=== PATIENT | female | born 1965 | race Caucasian/White ===

== ENCOUNTER 2017-06-01 16:28 | Emergency (ER) | payer MEDICAID ==
--- NOTE | 2017-06-01 16:43 | EDPHY ---
H & P Time Seen by Provider: 06/01/17 16:43 HPI/ROS: CHIEF COMPLAINT: Diarrhea with abdominal cramping HISTORY OF PRESENT ILLNESS: This is a 51 year female whose had a problem for about 9-10 days. From the beginning she is having multiple episodes of diarrheal stools on a daily basis sometimes 5-6. There has been no blood but it has been green in color, at times. She has not tried any medications such as Imodium. The discomfort itself is associated with diarrhea. She will have welling up of lower abdominal distress followed by relief with the diarrhea. At no times it is it painful for her to stand or walk or ride in the car. No else is similar symptoms, no travel. There was some 3 episodes of emesis 4-5 days ago but has been able to hydrate well. She is not taking excessive amounts of caffeine, juices. However she does take a fair amount of dairy though that has never been a problem for her in the past She was on antibiotics approximately 7 days ago for dental problems taking clindamycin. She was remote history of a dysentery in the setting of the [employer] trips to the [facility] in [place]. Travel: None Others: None Antibiotics: Yes, 7 weeks ago, she believes clindamycin Bad Food: None Bad Water: None Recent Surgery: None REVIEW OF SYSTEMS: Constitutional: She did not check her temperature readings but she did feel chilled at home and suspects she had a fever Eyes: No discharge ENT: No sore throat. Cardiovascular: No chest pain, no palpitations. Respiratory: No cough, shortness of breath, or wheezing. Gastrointestinal: See above Genitourinary: No hematuria or frequency. Musculoskeletal: No back pain. Skin: No rashes. Neurological: No headache. 10 point ROS otherwise negative Source: Patient Exam Limitations: No limitations - Personal History Tetanus Vaccine Date: unsure - Medical/Surgical History Hx Asthma: No Hx Chronic Respiratory Disease: No Hx Diabetes: No Hx Cardiac Disease: No Hx Renal Disease: No Hx Cirrhosis: No Hx Alcoholism: No Hx HIV/AIDS: No Hx Splenectomy or Spleen Trauma: No Other PMH: MEd hx-Insomnia. Surg-renate - Family History Significant Family History: No pertinent family hx - Social History Smoking Status: Light smoker Alcohol Use: None Drug Use: None - Physical Exam Exam: General Appearance: Alert, no distress. Afebrile, though feels a little warm to the touch. Normal phonation. No respiratory distress. Eyes: Pupils equal and round no pallor or injection. No icterus ENT, Mouth: Mucous membranes moist Pharynx without erythema or exudate. TM Clear. Neck: No adenopathy. Supple. No JVD. Trachea in midline. Respiratory: There are no retractions, lungs are clear to auscultation. Chest wall: Nontender to palpation. No crepitus. Cardiovascular: Regular rate and rhythm, without murmur. Abdomen: Soft, bowel sounds normal. There is tenderness diffusely mostly left lower quadrant left buttock quadrant but to a small extent the right lower quadrant. No rebound or guarding Neurological: Ox3. No motor weakness. Sensation intact. Gait nl. Skin: Warm and dry, no rashes. Musculoskeletal: No joint swelling. Extremities: No edema. Homans sign negative. No cords. Psychiatric: Normal affect. Patient is oriented X 3. There is no agitation Constitutional: Initial Vital Signs Temperature (C) 37.0 C 06/01/17 16:30 Heart Rate 90 06/01/17 16:30 Respiratory Rate 16 06/01/17 16:30 Blood Pressure 140/94 H 06/01/17 16:30 O2 Sat (%) 93 06/01/17 16:30 O2 Delivery Mode Room Air Allergies/Adverse Reactions: codeine Allergy (Verified 06/01/17 16:43) Home Medications: Medication Instructions Recorded Clonazepam PRN 05/19/16 Dicyclomine [Bentyl 10 MG (*)] 10 mg PO Q8H PRN #10 cap 06/01/17 Seroquel 06/01/17 traMADol 06/01/17 Medical Decision Making ED Course/Re-evaluation: We discussed diagnostic options. I offered her a CT scan as she does have left lower quadrant tenderness although that most likely represents colitis rather than diverticulitis. She would like to opt out from that and would consider coming back if there is more pain specific to left lower quadrant or pain with ambulation or in general feeling worse. In the interim she will submit a stool specimen which we have obtained here. Antibiotic therapy would directed based upon the actual results rather than preliminary. Initially she is to avoid any Imodium therapy. She will have Bentyl for the cramps that she is experiencing We discussed other diagnostic options such as inflammatory bowel disease Differential Diagnosis: Differential diagnosis includes, but is not limited to: Gastroenteritis, dehydration, diverticulitis, renal colic, kidney stones, ureterolithiasis, cholecystitis, appendicitis, gastritis, mesenteric adenitis, food poisoning, bacterial dysentery, inflammatory bowel disease, spastic colon. Departure - Departure Disposition: Home, Routine, Self-Care Clinical Impression: Acute diarrhea Condition: Good Instructions: Acute Diarrhea (ED) Additional Instructions: Try to use a regular diet as much as possible Avoid particular things such as dairy, coffee, too much juices No Imodium for now until the E coli is read as negative Bentyl for the cramps - -sedation risk, thus no drinking, driving, working around machinery Call for stool results in 3 days: [phone] Referrals: Tammi AMBRIZ [Primary Care Provider] - 3-4 days, if not improved Prescriptions: Dicyclomine [Bentyl 10 MG (*)] 10 mg PO Q8H PRN #10 cap PRN Reason: Abdominal cramps
[2017-06-01 16:51] VITALS: BP 140/94; PULSE 90; RESP 16; TEMP 98.6; O2SAT 93
== END 2017-06-01 17:28 | disposition home or self-care (01) ==
LOC: CED 16:28
DX: R19.7 Diarrhea, unspecified (principal); F17.200 Nicotine dependence, unspecified, uncomplicated

== ENCOUNTER 2017-06-04 16:57 | Emergency (ER) | payer MEDICAID ==
[2017-06-04 17:19] VITALS: BP 131/92; PULSE 84; RESP 16; TEMP 99; O2SAT 94
--- NOTE | 2017-06-04 17:24 | EDPHY ---
H & P Time Seen by Provider: 06/04/17 17:05 HPI/ROS: HPI Bilateral shoulder pain. 51-year-old female by private vehicle. This patient was seen in the emergency department on June 01 with abdominal cramping and diarrhea. A stool study was performed. This detected Clostridium difficile. I am not sure the clinical significance of this given the natural carriage asymptomatic state. Stool studies were otherwise negative. She was placed on vancomycin for this. She reports that since Saturday she has developed bilateral shoulder pain. She describes this as deep and aching and more pronounced with movement of the shoulders. She has not had a fever. She denies any urinary complaints. No ocular or eyelid inflammation or changes in vision. There is no history of trauma or fall. She has not been working out recently. She describes it is similar to the pain she had with a rotator cuff injury. ROS: Constitutional: No fever, no chills. No weakness. Eyes: No discharge. No changes in vision. ENT: No sore throat. No nasal congestion or rhinorrhea. Respiratory: No cough. No shortness of breath. Cardiac: No chest pain, no palpitations. Gastrointestinal: No abdominal pain, no vomiting, no diarrhea. Genitourinary: No hematuria. No dysuria or increased frequency with urination. Musculoskeletal: No back pain. No neck pain. As above. Skin: No rashes. Neurological: No headache. No focal weakness or altered sensation. Past medical history: As above. Also includes cholecystectomy and insomnia. [facility] care is through [facility]. Social history: Light smoker. No alcohol. Here by herself. Physical Exam: General Appearance: Alert, no distress. This patient is responding to questions appropriately and in full sentences. This patient appears well- hydrated and well-nourished. Eyes: Pupils equal and round no pallor or injection. No lid edema, erythema or injection. Bilateral shoulder exam: No erythema, warmth, edema associated with the shoulder anatomy. She has discomfort with passive and active range of motion. The shoulders are anatomically symmetric and without evidence of subluxation/ dislocation. There is no significant pain on palpation of the bilateral AC joints. The upper extremities are neurovascularly intact. Respiratory: There are no retractions, lungs are clear to auscultation with good air movement bilaterally. Cardiovascular: Regular rate and rhythm. No murmur. Gastrointestinal: Abdomen is soft and nontender, no masses, bowel sounds normal. No focal tenderness at McBurney's point. No Crane sign. Neurological: Motor sensory function is grossly intact. Cranial nerves are normal. Gait is normal. Skin: Warm and dry, no rashes. Musculoskeletal: Neck is supple and nontender. No lymphadenopathy. Extremities are symmetrical. All joints range without pain or impingement except noted. Psychiatric: No agitation. No depression. Database: EKG: Imaging: Procedures: Emergency department course: Vital signs reviewed and are unremarkable. This patient's presentation is consistent with reactive arthritis. Plan will be to treat her with ibuprofen 600 mg every 6 hr with meals for the next 3-4 days and then have her follow up with her primary care physician for re-evaluation at that time. If she is not improving intra-articular glucocorticoids versus systemic glucocorticoids should be considered as well as follow up with a certified retinal angiographer. This plan was discussed with her. She feels comfortable going home. All of her questions were answered. Return to emergency department precautions reviewed. She was discharged in good condition. This patient presents Differential Diagnosis: The differential diagnosis on this patient includes but is not limited to reactive arthritis. Shoulder subluxation, dislocation, acute coronary syndrome , aortic dissection unlikely. This represents a partial list of diagnoses considered. These considerations are based on history, physical exam, past history, reassessment and diagnostic testing. Smoking Status: Current some day smoker Constitutional: Initial Vital Signs Temperature (C) 37.2 C 06/04/17 17:07 Heart Rate 84 06/04/17 17:07 Respiratory Rate 16 06/04/17 17:07 Blood Pressure 131/92 H 06/04/17 17:07 O2 Sat (%) 94 06/04/17 17:07 O2 Delivery Mode Room Air Allergies/Adverse Reactions: codeine Allergy (Verified 06/04/17 17:11) Home Medications: Medication Instructions Recorded Clonazepam PRN 05/19/16 Dicyclomine [Bentyl 10 MG (*)] 10 mg PO Q8H PRN #10 cap 06/01/17 Seroquel 06/01/17 traMADol 06/01/17 Clonidine 06/04/17 Vancomycin 06/04/17 Departure - Departure Disposition: Home, Routine, Self-Care Clinical Impression: Reactive arthritis of right shoulder, Reactive arthritis of left shoulder Condition: Good Instructions: Autoimmune Disease (ED), Arthritis (ED) Additional Instructions: Read and follow provided instructions. Follow-up with your primary care physician in 3-4 days for re-evaluation as discussed. Ibuprofen dosin mg every 6 hr with meals for the next 4 days. If your symptoms are not resolving with ibuprofen treatment, steroids should be considered and referral to a certified retinal angiographer should be considered. Discussed this with your primary care physician as needed. Return to the emergency department for worsening symptoms, fever, pain or other serious concerns. Referrals: NONE *PRIMARY CARE P,. [Primary Care Provider] - As per Instructions
[2017-06-04] MEDS ORDERED: IBUPROFEN 200 MG TAB PO ONE (17:40)
== END 2017-06-04 18:02 | disposition home or self-care (01) ==
LOC: CED 16:57
DX: M02.311 Reiter's disease, right shoulder (principal); M02.312 Reiter's disease, left shoulder; F17.200 Nicotine dependence, unspecified, uncomplicated

== ENCOUNTER 2017-07-30 11:40 | Emergency (ER) | payer MEDICAID ==
[2017-07-30 11:58] VITALS: BP 151/86; PULSE 70; RESP 16; TEMP 98.2; O2SAT 95
--- NOTE | 2017-07-30 12:26 | EDPHY ---
H & P Stated Complaint: stomach pain and nausea , for weeks .Hep c tx Time Seen by Provider: 07/30/17 12:00 HPI/ROS: CHIEF COMPLAINT: Nausea vomiting History by patient HISTORY OF PRESENT ILLNESS: 52-year-old woman with a history of hepatitis C for which she is currently on treatment presents complaining of severe nausea and vomiting for the past 5 days. Patient has had ongoing chronic nausea the last several months since she was diagnosed with hepatitis C and then been on the medication but has not had much vomiting. She has also recently been treated for C difficile but says she did not complete the course of antibiotics for this because she developed reactive arthritis although she does state that she was told this C difficile had cleared. She has had a couple episodes of loose stools but no watery or bloody diarrhea in the past few days despite the vomiting. She denies any fever chills but has just been generally feeling poorly and has had bad appetite. She denies any abdominal pain but does state that she feels uncomfortable because she needs to vomit. She has been using promethazine with minimal relief. She called her GI specialist and has an appointment pending for tomorrow but felt like she was dehydrated and needed to be seen today. The symptoms began in the middle the night 5 days ago when she was lying awake in bed because she has been having difficulty sleeping and she rolled over and felt like the room was spinning. Subsequently she has but multiple other episodes of this dizziness which she describes as the room spinning or like the bed spins from alcohol associated with nausea and vomiting. She says the similar to prior episode of vertigo she had when she was . She has had a persistent ongoing runny nose and congested sinuses for several weeks. She complains of itching and drainage in her left ear. She feels generally weak all over. REVIEW OF SYSTEMS: As in HPI, and all other systems reviewed and are negative Source: Patient - Personal History LMP (Females 10-55): Post Menopausal Current Tetanus Diphtheria and Acellular Pertussis (TDAP): Yes Tetanus Vaccine Date: 2009 - Medical/Surgical History Hx Asthma: No Hx Chronic Respiratory Disease: No Hx Diabetes: No Hx Cardiac Disease: No Hx Renal Disease: No Hx Cirrhosis: No Hx Alcoholism: No Hx HIV/AIDS: No Hx Splenectomy or Spleen Trauma: No Other PMH: MEd hx-Insomnia, Hep c. Surg-renate. Cdiff hx - Social History Smoking Status: Current every day smoker - Physical Exam Exam: General Appearance: Alert and no distress. Head: normocephalic, atraumatic, no sinus tenderness Eyes: Pupils equal and round no injection. Extraocular movements intact, no jaundice, no nystagmus Ears: TM no erythema or bulging, external canals clear, positive fluid behind the TMs bilaterally OP: mucus membranes moist, no tonsillar enlargement, no erythema or exudates Neck: no meningismus, no cervical nodes, no submandibular nodes Respiratory: Chest is nontender, lungs are clear to auscultation. No wheezes, rales, rhonchi Cardiac: regular rate and rhythm. S1, S2, no murmurs, gallops, rubs appreciated. Gastrointestinal: Abdomen is soft and nontender, no masses, bowel sounds normal. Musculoskeletal: Neck is supple and nontender. Extremities have full range of motion and are nontender. Skin: No rashes or lesions. Neuro: Awake alert oriented x3, cranial nerves 2-12 are intact, no pronator drift, [id number] intact, Constitutional: Initial Vital Signs Temperature (C) 36.8 C 07/30/17 11:48 Heart Rate 70 07/30/17 11:48 Respiratory Rate 16 07/30/17 11:48 Blood Pressure 151/86 H 07/30/17 11:48 O2 Sat (%) 95 07/30/17 11:48 O2 Delivery Mode Room Air Allergies/Adverse Reactions: codeine Allergy (Verified 07/30/17 11:52) Home Medications: Medication Instructions Recorded traMADol 06/01/17 Mavyet 07/30/17 Ondansetron Odt [Zofran Odt 4 mg 4 mg PO Q4 PRN #12 tab 07/30/17 (*)] Promethazine HCl 07/30/17 traZODone 07/30/17 Medical Decision Making ED Course/Re-evaluation: 52-year-old woman with history of hepatitis C presents with new symptoms of vertigo as well as worsened chronic nausea and now vomiting. Here the patient is vital signs are within normal limits there is no evidence of significant clinical dehydration or toxicity and her exam is unremarkable. Patient was tolerating p. O. Fluids in the emergency department without any difficulty. I suspect the worsened nausea vomiting may be related to this vertigo, which may be related to her sinus congestion. I was unable to elicit nystagmus to suggest vertigo that my responded to Genesis maneuver. We discussed using decongestants such as Sudafed. I also recommend following up with her GI specialist as scheduled tomorrow. Because the patient is not responding to promethazine will give her a trial of Zofran which she has says has worked for her in the past. Departure - Departure Disposition: Home, Routine, Self-Care Clinical Impression: Vertigo Nausea and vomiting Qualifiers: Vomiting type: unspecified Vomiting Intractability: non-intractable Qualified Code(s): R11.2 - Nausea with vomiting, unspecified Condition: Fair Instructions: Vertigo (DC) Additional Instructions: You were seen by Dr. Sarahi Ballard today. Try pseudoephedrine to improve years sinus congestion and see if this helps the vertigo. Try Zofran with or without the promethazine to see if this helps with the nausea and vomiting. Continue to take plenty of fluids and hydrating as he has been doing. I find no evidence of significant dehydration today. Follow up with her GI specialist as scheduled tomorrow. Return for any worsening or new concerns. Referrals: FELI VIERA [Other] - As per Instructions Prescriptions: Ondansetron Odt [Zofran Odt 4 mg (*)] 4 mg PO Q4 PRN #12 tab PRN Reason: Nausea and vomiting
== END 2017-07-30 12:30 | disposition home or self-care (01) ==
LOC: CED 11:40
DX: R11.2 Nausea with vomiting, unspecified (principal); R42 Dizziness and giddiness; F17.200 Nicotine dependence, unspecified, uncomplicated

== ENCOUNTER → 2017-08-05 | Outpatient (CLI) | payer MEDICAID | LOC: CIMAGING 10:22 | PROVIDERS: ATTEND Internal Medicine | DX: R11.2 Nausea with vomiting, unspecified (principal); R10.9 Unspecified abdominal pain; K76.9 Liver disease, unspecified; R93.2 Abnormal findings on diagnostic imaging of liver and biliary tract | CPT/HCPCS: 76705-PO ==

== ENCOUNTER 2018-09-02 12:07 | Emergency (ER) | payer MEDICAID ==
[2018-09-02 12:22] VITALS: BP 110/80
[2018-09-02] MEDS ORDERED: IBUPROFEN 800 MG TAB PO ONE (12:22)
--- NOTE | 2018-09-02 12:25 | EDPHY ---
H & P Time Seen by Provider: 09/02/18 12:15 HPI/ROS: HPI Sore throat. 53-year-old female by private vehicle. This patient reports onset of a sore throat yesterday morning. She states the pain is somewhat worse with swallowing. She is concerned because she was diagnosed with strep throat about a year ago. She came here to the emergency department for strep testing. She has not had any voice changes. Denies any stridor. No difficulty breathing. No other complaints. ROS: Constitutional: No fever, no chills. No weakness. Eyes: No discharge. No changes in vision. ENT: As above. No nasal congestion or rhinorrhea. Respiratory: No cough. No shortness of breath. Cardiac: No chest pain, no palpitations. Gastrointestinal: No abdominal pain, no vomiting, no diarrhea. Musculoskeletal: No back pain. No neck pain. No myalgias or arthralgias. Skin: No rashes. Neurological: No headache. Past medical history: Insomnia, hepatitis-C, cholecystectomy, C diff. Social history: Nonsmoker. Here by herself. No alcohol. Physical Exam: General Appearance: Alert, no distress. This patient is responding to questions appropriately and in full sentences. This patient appears well- hydrated and well-nourished. Eyes: Pupils equal and round no pallor or injection. No lid edema, erythema or injection. ENT, Mouth: Mucous membranes are moist. She has some erythema and mild edema involving the right tonsil. There is also some associated exudate involving the right tonsil. No asymmetry suggestive of abscess. No stridor on auscultation of her neck. No voice changes. No cervical, submandibular, submental lymphadenopathy. No elevation of her tongue. Respiratory: There are no retractions, lungs are clear to auscultation with good air movement bilaterally. Cardiovascular: Regular rate and rhythm. No murmur. Neurological: Motor sensory function is grossly intact. Cranial nerves are normal. Gait is normal. Skin: Warm and dry, no rashes. Musculoskeletal: Neck is supple and nontender. No pain on flexion of her neck. Extremities are symmetrical. All joints range without pain or impingement. Psychiatric: No agitation. No depression. Database: Rapid strep: Negative. EKG: Imaging: Procedures: Emergency department course: Triage vital signs reviewed and are negative. She was given 800 mg of ibuprofen after my evaluation. Rapid strep to be obtained. 12:40 p.m., rapid strep is negative. Results were discussed with patient on re- evaluation. She will be discharged to home with instructions on ibuprofen dosing and supportive care. I discussed follow-up with her primary care physician in 2-3 days for re-evaluation. Return to emergency department precautions were reviewed with her. She feels comfortable going home and all of her questions were answered. She was discharged from the emergency department in good condition. Differential Diagnosis: The differential diagnosis on this patient includes but is not limited to viral pharyngitis, streptococcal pharyngitis. Retropharyngeal abscess, peritonsillar abscess, epiglottitis, tracheitis unlikely. This represents a partial list of diagnoses considered. These considerations are based on history, physical exam , past history, reassessment and diagnostic testing. Smoking Status: Current every day smoker Constitutional: Initial Vital Signs Temperature (C) 36.7 C 09/02/18 12:20 Heart Rate 68 09/02/18 12:20 Respiratory Rate 16 09/02/18 12:20 Blood Pressure 110/80 09/02/18 12:20 O2 Sat (%) 96 09/02/18 12:20 O2 Delivery Mode Room Air Allergies/Adverse Reactions: codeine Allergy (Verified 09/02/18 12:10) Home Medications: Medication Instructions Recorded Amitriptyline HCl 09/02/18 QUEtiapine FUMARATE [Seroquel 100 09/02/18 mg (*)] Medical Decision Making - Data Points Medications Given: Discontinued Medications Ibuprofen (Motrin) 800 mg PO EDNOW ONE Stop: 09/02/18 12:23 Last Admin: 09/02/18 12:27 Dose: 800 mg Point of Care Test Results: Strep Strep Throat Swab Collection 09/02/18 Date Strep Throat Swab Swab 12:20 Collection Time Strep Result Not Detected Departure - Departure Disposition: Home, Routine, Self-Care Clinical Impression: Acute pharyngitis Condition: Good Instructions: Pharyngitis (ED) Additional Instructions: Read and follow provided instructions. Follow-up with your primary care physician in 2-3 days for re-evaluation. Ibuprofen dosin mg every 6 hours with meals for the next 3 days only. Take only as needed for pain. Return to the emergency department for worsening symptoms, worsening sore throat , difficulty swallowing, voice changes, stridor or other serious concerns. Referrals: AYLIN EDMOND [Other] - As per Instructions
== END 2018-09-02 12:45 | disposition home or self-care (01) ==
LOC: CED 12:07
DX: J02.9 Acute pharyngitis, unspecified (principal); B19.20 Unspecified viral hepatitis C without hepatic coma
CPT/HCPCS: 87880-QW-ER; 99283-ER